=== PATIENT | female | born 1965 | race Caucasian/White ===

== ENCOUNTER 2021-12-31 03:19 | Emergency (ER) | payer OTHER ==
[2021-12-31] MEDS ORDERED: diphenhydrAMINE INJ 50 MG/ML VIAL IVP STA (04:03)
[2021-12-31] MEDS ORDERED: DEXAMETHASONE 10 MG/ML VIAL IVP STA (04:03)
--- NOTE | 2021-12-31 04:09 | ED Physician Documentation ---
History of Present Illness - Stated complaint Stated Complaint: ALLERGIC REACTION - Chief complaint Chief Complaint: Allergic Rx - History obtained from History obtained from: Patient, Family - History of Present Illness Timing: How many days ago (3) - Additonal information Additional information: 56-year-old Elodia Price is visiting from [place] and has come to [facility] to go shrimping. She states that she arrived here on Sunday night. They went out to dinner, had some [place] food including some shrimp fried rice and a chicken dish. The following morning the patient awoke with redness to her face. With some swelling. She took some Benadryl and this did not seem to work all that much. She did go out and do her shrimping wearing gloves and she has not eaten the shrimp. She went to the urgent care and had an injection of kenalog and she feels this did not help and in fact she feels her symptoms have worsened. She denies shortness of breath. She has some weeping from the rash behind her ears and she has some redness between her fingers on the right hand. She reports being able to eat a lot of shrimp previously and [place] food. Last year she felt she had a little reaction but was able to eat the frozen shrimp at home. Review of Systems Constitutional: denies: Fever Eyes: reports: Other (swelling to the eyes). denies: Decreased vision Ears: denies: Ear pain Nose: denies: Congestion Throat: denies: Dental pain / toothache, Oral lesions / sores, Sore throat Cardiac: denies: Chest pain / pressure, Palpitations Respiratory: denies: Dyspnea, Cough GI: denies: Abdominal Pain, Nausea, Vomiting, Constipation, Diarrhea : denies: Dysuria, Frequency PD PAST MEDICAL HISTORY - Present Medications Home Medications: Ambulatory Orders Medication Instructions Recorded Confirmed Atorvastatin [Lipitor] 1 tablet PO DAILY 12/31/21 12/31/21 Levothyroxine [Synthroid] 2 tablet PO DAILY 12/31/21 12/31/21 metFORMIN [Glucophage] 1 tab PO DAILY 12/31/21 12/31/21 predniSONE [Deltasone] 40 mg PO DAILY 5 Days #10 tablet 12/31/21 - Allergies Allergies/Adverse Reactions: Allergies Allergy/AdvReac Type Severity Reaction Status Date / Time hydrocodone Allergy Unknown Verified 12/31/21 03:32 oxycodone Allergy Unknown Verified 12/31/21 03:32 PD ED PE NORMAL - Vitals Vital signs reviewed: Yes (hypertensive ) - General General: Alert and oriented X 3, No acute distress, Well developed/nourished - HEENT HEENT: Atraumatic, PERRL, EOMI, Other (There is swelling and erythema to the eyes bilat the nose appears spared. 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, No motor deficit, No sensory deficit, Normal speech Eye Opening: Spontaneous Motor: Obeys Commands Verbal: Oriented GCS Score: 15 - Psych Psych: Normal mood, Normal affect Results - Vitals Vitals: Vital Signs - 24 hr 12/31/21 12/31/21 03:26 06:30 Temperature 36.5 C 36.4 C L Heart Rate 92 70 Respiratory 18 18 Rate Blood Pressure 144/86 H 114/68 O2 Saturation 97 99 Oxygen O2 Source Room air PD MEDICAL DECISION MAKING - ED course Complexity details: considered differential, d/w patient, d/w family ED course: 56-year-old female with allergic reaction leading to redness and swelling to her face is administered dexamethasone 10 mg intravenously as well as Benadryl 25 mg intravenously and she is observed for more than an hour. There is continued improvement with time. Departure - Departure Disposition: 01 Home, Self Care Clinical Impression: Allergic reaction Qualifiers: Encounter type: initial encounter Qualified Code(s): T78.40XA - Allergy, unspecified, initial encounter Condition: Stable Instructions: ED Allergic Reaction General Other Follow-Up: Your, doctor [Other] Prescriptions: predniSONE [Deltasone] 40 mg PO DAILY 5 Days #10 tablet Comments: Elodia, today it looks like you have had a reaction to something the suspicion is that this is to shrimp. Being that you are quite passionate about shrimp my recommendation is to follow-up with an teacher associate in [place] about the possibility of this. In the meantime the recommendation is to take a antihistamine for at least the next 2 days and I have prescribed some prednisone which you do not need to start until tomorrow. Today you were given 10 mg of dexamethasone and 25 mg of Benadryl. Discharge Date/Time: 12/31/21 06:30
[2021-12-31 06:31] VITALS: BP 114/68
== END 2021-12-31 06:30 | disposition home or self-care (01) ==
LOC: ED 03:19
DX: T78.40XA Allergy, unspecified, initial encounter (principal)
CPT/HCPCS: 96374; 96375; 99283; 99284; J1200